=== PATIENT | male | born 1955 | race Caucasian/White ===

== ENCOUNTER 2024-12-25 09:19 | Observation (INO) | payer MEDICARE ==
[2024-12-20 12:28] LABS: BASOPHILS # (AUTO) 0.06 K/uL (0.00-0.20); EOSINOPHILS # (AUTO) 0.15 K/uL (0.00-0.70); EOSINOPHILS % (AUTO) 2.4 % (0.0-8.0); HEMATOCRIT 40.7 % (42-54); IMMATURE GRANULOCYTE ABSOLUTE 0.01 K/uL (0-1); LYMPHOCYTES # (AUTO) 2.1 K/uL (1.0-4.8); LYMPHOCYTES % (AUTO) 33.5 % (21.0-51.0); MEAN CORPUSCULAR HEMOGLOBIN 29.3 pg (27.0-33.0); MEAN CORPUSCULAR HGB CONC 31.7 g/dL (32.0-36.0); MEAN CORPUSCULAR VOLUME 92.3 fL (79-99); MONOCYTES # (AUTO) 0.4 K/uL (0.1-1.0); MONOCYTES % (AUTO) 6.5 % (3.0-13.0); NEUTROPHILS # (AUTO) 3.5 K/uL (1.8-7.7); NEUTROPHILS % (AUTO) 56.4 % (40.0-77.0); PLATELET COUNT (AUTO) 213 K/uL (130-400); RED BLOOD CELL COUNT(AUTO) 4.41 MIL/uL (4.50-6.20); RED CELL DISTRIBUTION WIDTH 13.6 % (11.0-15.5); WHITE BLOOD COUNT (AUTO) 6.2 K/uL (4.8-10.8)
[2024-12-20 12:30] VITALS: BP 145/71; PULSE 57; RESP 18; TEMP 97.8
[2024-12-20 12:38] LABS: INR <= 0.93 (0.85-1.15); PROTHROMBIN TIME 10.3 SEC (9.6-11.6)
[2024-12-20 12:39] LABS: ALBUMIN 3.3 g/dL (3.5-5.0); CREATININE 1.2 mg/dL (0.5-1.3); PARTIAL THROMBOPLASTIN TIME 25.1 SEC (26.3-35.5); POTASSIUM 4.2 mmol/L (3.5-5.1)
[~2024-12-25] VITALS: Ht 172.7 cm; Wt 79.4 kg
[2024-12-25] VITALS (26 sets, daily range): BP systolic 125–166; BP diastolic 59–85; PULSE 57–88; RESP 15–18; TEMP 97.1–98.4; O2SAT 99
[~2024-12-25 09:19] MED LIST: ASPI-1197 PO; CARV12.511 PO; CELE200C3 PO; FERR-82 PO; PANT40TA54 PO; ROSU5TAB51 PO; TRAM50TA4 PO; [UNRECOGNIZED DRUG - CODE] PO
[2024-12-25] MEDS: ceFAZolin SODIUM 2 GM VIAL ONE (10:00)
[2024-12-25] MEDS: LACTATED RINGERS 1000ML 1,000 ML IV ONE (10:01)
[2024-12-25] MEDS: FAMOTIDINE 20MG VIAL IV ONE (10:48)
[2024-12-25] MEDS ORDERED: ROPivacaine 0.5% 5MG/ML 30ML ONE (10:49)
[2024-12-25] MEDS ORDERED: ketaMINE 50MG/ML SYRINGE 50 MG/ML DISP.SYRIN ONE (10:49)
[2024-12-25] MEDS ORDERED: FENTanyl CITRate PF 50 MCG/1 ML 2ML VIAL ONE (10:52)
[2024-12-25] MEDS ORDERED: LIDOCAINE PF 100MG/5ML (2%) SYRINGE 5ML ONE ×2 (10:52→13:05)
[2024-12-25] MEDS ORDERED: rocuRONium bROMide 10MG/1ML 5ML VL ONE ×2 (10:52→12:40)
[2024-12-25] MEDS ORDERED: proPOFol 10 MG/ML 20ML VIAL IV ONE (10:52)
[2024-12-25] MEDS ORDERED: dexaMETHasone SOD PHOSPHATE 10MG/ML 1ML VIAL ONE (12:14)
[2024-12-25] MEDS ORDERED: ondanSETRON 4MG INJ ONE (12:14)
[2024-12-25] MEDS ORDERED: NEOSTIGMINE METHYLSULFATE 1MG/ML IV ONE (12:29)
[2024-12-25] MEDS ORDERED: phenylEPHRINE HCL 10 MG/ML 1ML VIAL IV ONE (12:30)
[2024-12-25] MEDS ORDERED: GLYCOPYRROLATE 0.2 MG/ML 5 ML VIAL ONE (12:30)
[2024-12-25] MEDS: TRANEXAMIC ACID 1000MG/10ML ONE (12:40)
--- NOTE | 2024-12-25 14:44 | OP ---
Operative Note: DATE OF PROCEDURE: 12/25/24 SURGEON: ROSE MARIE MEJIA MD PROPELLER TESTER: Radha Andrews ANESTHESIA: General and fascia iliaca block ANESTHESIOLOGIST/STOCK MIXER: Annamaria Duggan PREOPERATIVE DIAGNOSIS: Right hip osteoarthritis POSTOPERATIVE DIAGNOSIS: Right hip osteoarthritis PROCEDURE: Right total hip arthroplasty ESTIMATED BLOOD LOSS: 200 cc INDICATIONS: 69-year-old male with bilateral hip osteoarthritis failing conservative management. The right hip was more symptomatic. After discussion of the risks, benefits, and alternatives, the patient voluntarily agreed to undergo the aforementioned procedure. IMPLANTS: White and Nephew R3 three-hole shell 54 mm with 6.5 screws x2, dual mobility OR30 Oxinium liner 42 mm inner diameter, dual mobility insert XL PE 28 inner diameter, 28 Oxinium femoral head +4, size 6 standard offset powerology s sid DESCRIPTION OF PROCEDURE: Patient was properly identified in the preoperative holding area. Surgical site marking was verified and surgery consent reviewed. The patient was then taken to the operating room and placed in supine position on the OR table. After induction of general anesthesia, preoperative antibiotics were given. The patient was then transitioned in the lateral decubitus position with the right side up. All bony prominences were well-padded. Right lower extremity was then prepped and draped in the usual sterile fashion. Surgical time out was done verifying correct surgery, side, site, and location to be performed. We then began the procedure by making approximately 15 cm long incision centered over the greater trochanter. Here we came sharply through skin down to the fascia. Hemostasis was then achieved using Bovie electrocautery. We then incised fascia in line with the skin incision and finger split the tensor muscle proximally. We then placed our Charnley retractor. At this point we identified the vastus ridge and began elevating the full-thickness soft tissue flap off of the vastus ridge, splitting the vastus lateralis and gluteus muscles as necessary. We then proceeded to externally rotate the femur while making this flap. We resected part of the anterior capsule. The femoral head and neck was then delivered into view. We then dislocated the hip and performed a femoral neck osteotomy approximately half fingerbreadth proximal to the lesser trochanter. We then placed our retractors around the superior and anterior portion of the acetabulum and began to remove the labrum circumferentially. We then began reaming the acetabulum where we reamed up to a size 53 ensuring appropriate anteversion and abduction. We then proceeded to trial with the size 54 acetabular component and this appeared to sit well. We opened our size 54 acetabular component and after irrigating out the wound malleted this into place. It appeared to have good press-fit however we elected to place two of the 6.5 mm screws. We drilled and filled the screws in standard fashion in the posterior superior portion of the cup. We then placed the manhole cover on the center of the cup. The wound was thoroughly irrigated out further and we placed the acetabular liner and impacted this in place in standard fashion. We then proceeded to reposition our retractors to elevate the proximal femur out of the wound. We then used the box chisel and canal finder to began preparing the femoral side and sequentially broached up to the aforementioned size stem. Once we felt we had good fit, fill, and control of the femur with the stem in place we then used our trial head component and reduce the hip. However, we noticed this to be lax on the soft tissue tensioning with slight shortening of the limb and then dislocated the hip and trialed once more with the +[address] Upon reduction, we had appropriate soft tissue tensioning, limb length and stable range of motion. We therefore dislocated the hip once more removed our trial components thoroughly irrigated the out the wound and placed our final components in standard fashion. The hip was then reduced with the final components in place. It was found to be stable through range of motion with appropriate soft tissue tensioning and appropriate limb length. At this point we placed a bump under the knee and the foot on the male with a stack of towels to allow for internal rotation. We repaired the abductors back to the greater trochanter using #5 Ethibond. We then repaired the rent in the vastus lateralis and gluteus muscles using #1 Vicryl in a running fashion. We removed our Charnley retractor and began to repair the IT band using #1 Vicryl in interrupted [id number] fashion. At this point we began to close her vitale bcutaneous tissue using 2-0 Vicryl. Running 3-0 Monocryl in subcuticular fashion with Dermabond placed over this for the skin. Island barrier dressing was then applied. Patient was returned to supine position with abduction pillow placed, awakened from anesthesia, and taken to the recovery room in stable condition. ROSE MARIE MEJIA MD Dec 25, 2024 14:44
[2024-12-25] MEDS: MEPERIDINE-PF 50 MG/ML SYG ONE (14:59)
[2024-12-25] MEDS: ketOROlac 15MG/ML VIAL (15MG/ML) ONE (15:13)
--- NOTE | 2024-12-25 15:21 | HMCIMG ---
HIP UNILAT 4VW RIGHT REASON: RT total hip arthroplasty. COMPARISON: None TECHNIQUE: Fluoroscopic images of right hip were obtained. FINDINGS: Please see procedure report by referring physician. IMPRESSION: Intraoperative films.
[2024-12-25] MEDS ORDERED: DiphenhydrAMINE HCL 50 MG/ML VIAL IVP PRN (15:30)
[2024-12-25] MEDS ORDERED: FERROUS FUMARATE 324 MG TABLET PO PRN (15:30)
[2024-12-25] MEDS ORDERED: ondanSETRON 4MG INJ IVP PRN (15:30)
[2024-12-25] MEDS ORDERED: ketOROlac 15MG/ML VIAL (15MG/ML) IV SCH (15:30)
[2024-12-25] MEDS ORDERED: CALCIUM CARB 500MG PO PRN (15:30)
[2024-12-25] MEDS ORDERED: PoTASSium chloRIDE 20MEQ/100ML 100 ML IV PRN (15:30)
[2024-12-25] MEDS ORDERED: PoTASSium chl 10% ELIXIR 20MEQ 20 MEQ/15 ML UDCUP PO PRN (15:30)
[2024-12-25] MEDS ORDERED: PoTASSium chloRIDE 20MEQ ER 20 MEQ ERTAB PO PRN (15:30)
--- NOTE | 2024-12-25 15:33 | HMCIMG ---
HIP BILAT 2VW HISTORY: Right total hip arthroplasty COMPARISON: None TECHNIQUE: 3 images of bilateral hips were obtained. FINDINGS: Right total hip arthroplasty changes are seen. Penile prosthesis is also seen. There is no acute displaced fracture or dislocation. Degenerative changes are seen. IMPRESSION: 1. Findings as described above.
[2024-12-25] MEDS: FENTanyl CITRate PF 50 MCG/1 ML 2ML VIAL ONE (15:36)
[2024-12-25] MEDS: HYDROcodone/APAP 5/325 1 TAB TABLET ONE (16:00)
[2024-12-25] MEDS: acetaMINOPHEN 100 ML ONE (19:00)
[2024-12-25] MEDS: 0.9%NACL 1000ML 1,000 ML IV SCH (19:00)
[2024-12-25] MEDS: ceFAZolin SODIUM 2 GM VIAL IVP SCH (21:00)
[2024-12-25] MEDS: ASPIRIN 325MG TAB PO SCH (21:00)
[2024-12-25] MEDS: FERROUS SULFATE 325 MG TABLET.DR PO SCH (21:00)
[2024-12-25] MEDS: atorVAStatin 20 MG TABLET PO SCH (21:00)
[2024-12-25] MEDS: GABApentin 100 MG CAPSULE PO SCH (21:00)
[2024-12-25] MEDS: carVEDIlol 12.5 MG TABLET PO SCH (21:01)
[2024-12-25] MEDS: doCUSate SODIUM 100 MG CAP PO SCH (21:02)
[2024-12-25] MEDS: HYDROcodone/APAP 5/325 1 TAB TABLET PO PRN (21:03)
[2024-12-26] VITALS (8 sets, daily range): BP systolic 115–157; BP diastolic 56–91; PULSE 60–118; RESP 16–20; TEMP 97.8–98.4; O2SAT 100
[2024-12-26 05:31] LABS: HEMATOCRIT 32.9 % (42-54); MEAN CORPUSCULAR HEMOGLOBIN 29.5 pg (27.0-33.0); MEAN CORPUSCULAR HGB CONC 32.8 g/dL (32.0-36.0); MEAN CORPUSCULAR VOLUME 89.9 fL (79-99); RED BLOOD CELL COUNT(AUTO) 3.66 MIL/uL (4.50-6.20); RED CELL DISTRIBUTION WIDTH 13.5 % (11.0-15.5); WHITE BLOOD COUNT (AUTO) 10.9 K/uL (4.8-10.8)
[2024-12-26 05:44] LABS: CREATININE 1.4 mg/dL (0.5-1.3); POTASSIUM 3.7 mmol/L (3.5-5.1)
--- NOTE | 2024-12-26 07:44 | PN ---
Ortho postop day one. This morning the patient is awake alert and oriented. He is seated at the bedside in a chair resting comfortable. He reported a rough night but pain is acceptably managed. Vital signs have been stable he is afebrile. Noted to have a drop in hemoglobin and hematocrit as expected after total hip arthroplasty. Patient is asymptomatic and we will address per protocol as necessary. Voiding on his own. He is yet to pass gas. Performing incentive spirometry as instructed. SCD stockings currently are not present but they are available. He does have ice to the operative site. The dressing is intact. Distal neurovascular exam intact. Gastrocnemius soft. Negative Homans. Operative findings discussed with the patient. He had the opportunity to walk with a PT yesterday but only about 8-10 feet and is pending further physical therapy this morning. Anticipated discharge goal is home health/PT. Assessment: Status post right total hip arthroplasty. Asymptomatic acute postoperative blood loss anemia. Plan: Continue with Dr. Couch's total hip arthroplasty protocol and discharge planning. Asymptomatic acute postoperative blood loss anemia addressed per protocol Vitals/Labs Vital Signs Date Time Temp Pulse Resp B/P (MAP) Pulse Ox O2 Delivery O2 Flow Rate FiO2 12/26/24 04:00 98.4 118 19 123/91 97 Room Air 21 12/25/24 20:00 2 Laboratory Tests 12/26/24 04:54 Medications Current Medications Cefazolin Sodium 2 gm STK-MED ONCE .ROUTE Last administered on 12/25/24at 12:30; Start 12/25/24 at 09:25; Stop 12/25/24 at 09:26; Status DC Lactated Ringer's 1,000 ml @ As Directed STK-MED ONCE IV Last administered on 12/25/24at 10:01; Start 12/25/24 at 09:25; Stop 12/25/24 at 09:26; Status DC Acetaminophen 100 ml @ As Directed STK-MED ONCE .ROUTE; Start 12/25/24 at 10:48; Stop 12/25/24 at 10:48; Status DC Famotidine 20 mg STK-MED ONCE IV; Start 12/25/24 at 10:48; Stop 12/25/24 at 10:48; Status DC Ropivacaine 150 mg STK-MED ONCE .ROUTE; Start 12/25/24 at 10:49; Stop 12/25/24 at 10:50; Status DC Ketamine HCl 50 mg STK-MED ONCE .ROUTE; Start 12/25/24 at 10:49; Stop 12/25/24 at 10:50; Status DC Lidocaine HCl 100 mg STK-MED ONCE .ROUTE; Start 12/25/24 at 10:52; Stop 12/25/24 at 10:52; Status DC Propofol 200 mg STK-MED ONCE IV; Start 12/25/24 at 10:52; Stop 12/25/24 at 10:52; Status DC Rocuronium Erwin 50 mg STK-MED ONCE .ROUTE; Start 12/25/24 at 10:52; Stop 12/25/24 at 10:52; Status DC Fentanyl Citrate 100 mcg STK-MED ONCE .ROUTE; Start 12/25/24 at 10:52; Stop 12/25/24 at 10:53; Status DC Dexamethasone Sodium Phosphate 10 mg STK-MED ONCE .ROUTE; Start 12/25/24 at 12:14; Stop 12/25/24 at 12:15; Status DC Ondansetron HCl 4 mg STK-MED ONCE .ROUTE; Start 12/25/24 at 12:14; Stop 12/25/24 at 12:15; Status DC Tranexamic Acid 1,000 mg STK-MED ONCE .ROUTE Last administered on 12/25/24at 12:40; Start 12/25/24 at 12:18; Stop 12/25/24 at 12:18; Status DC Neostigmine Methylsulfate 10 mg STK-MED ONCE IV; Start 12/25/24 at 12:29; Stop 12/25/24 at 12:29; Status DC Glycopyrrolate 1 mg STK-MED ONCE .ROUTE; Start 12/25/24 at 12:30; Stop 12/25/24 at 12:30; Status DC Phenylephrine HCl 10 mg STK-MED ONCE IV; Start 12/25/24 at 12:30; Stop 12/25/24 at 12:30; Status DC Rocuronium Erwin 50 mg STK-MED ONCE .ROUTE; Start 12/25/24 at 12:40; Stop 12/25/24 at 12:40; Status DC Lidocaine HCl 100 mg STK-MED ONCE .ROUTE; Start 12/25/24 at 13:05; Stop 12/25/24 at 13:05; Status DC Meperidine HCl 50 mg STK-MED ONCE .ROUTE Last administered on 12/25/24at 14:59; Start 12/25/24 at 14:53; Stop 12/25/24 at 14:53; Status DC Sodium Chloride 1,000 ml @ 100 mls/hr Q10H IV; Start 12/25/24 at 15:30; Stop 12/26/24 at 15:29 Polyethylene Glycol 17 gm DAILY PO; Start 12/26/24 at 09:00; Stop 01/25/25 at 08:59 Bisacodyl 10 mg DAILY PRN RC; Start 12/28/24 at 15:30; Stop 01/27/25 at 15:29 Aspirin 325 mg BID PO Last administered on 12/25/24at 21:00; Start 12/25/24 at 21:00; Stop 01/24/25 at 20:59 Ketorolac Tromethamine 15 mg Q6H PRN IV; Start 12/26/24 at 15:30; Stop 12/25/24 at 15:29; Status DC Ferrous Fumarate 324 mg DAILY PRN PO; Start 12/25/24 at 15:30; Stop 01/24/25 at 15:29 Calcium Carbonate 500 mg Q12H PRN PO; Start 12/25/24 at 15:30; Stop 01/24/25 at 15:29 Diphenhydramine HCl 25 mg Q6H PRN IVP; Start 12/25/24 at 15:30; Stop 01/24/25 at 15:29 Ondansetron HCl 4 mg Q6H PRN IVP; Start 12/25/24 at 15:30; Stop 01/24/25 at 15:29 Cefazolin Sodium 2 gm Q8H IVP Last administered on 12/26/24at 05:08; Start 12/25/24 at 20:30; Stop 12/26/24 at 04:31; Status DC Gabapentin 100 mg TID PO Last administered on 12/25/24at 21:00; Start 12/25/24 at 21:00; Stop 01/24/25 at 20:59 Cyclobenzaprine HCl 5 mg Q8H PRN PO; Start 12/25/24 at 15:30; Stop 01/24/25 at 15:29 Docusate Sodium 100 mg BID PO Last administered on 12/25/24at 21:02; Start 12/25/24 at 21:00; Stop 01/24/25 at 20:59 Ketorolac Tromethamine 15 mg Q8H IV; Start 12/25/24 at 15:30; Stop 12/25/24 at 15:29; Status DC Potassium Chloride 100 ml @ 100 mls/hr AD PRN IV; Start 12/25/24 at 15:30; Stop 01/24/25 at 15:29 Potassium Chloride 20 meq AD PRN PO; Start 12/25/24 at 15:30; Stop 01/24/25 at 15:29 Potassium Chloride 20 meq AD PRN PO; Start 12/25/24 at 15:30; Stop 01/24/25 at 15:29 Tramadol HCl 50 mg Q6H PRN PO; Start 12/25/24 at 15:30; Stop 12/30/24 at 15:29 Acetaminophen/ Hydrocodone Bitart Q4H PRN PO Last administered on 12/26/24at 06:21; Start 12/25/24 at 15:30; Stop 12/30/24 at 15:29 Carvedilol 12.5 mg BID PO Last administered on 12/25/24at 21:01; Start 12/25/24 at 21:00; Stop 01/24/25 at 20:59 Pantoprazole Sodium 40 mg AM PO; Start 12/26/24 at 09:00; Stop 01/25/25 at 08:59 Vitamin B Complex 3,000 mcg DAILY PO; Start 12/26/24 at 09:00; Stop 01/25/25 at 08:59 Ferrous Sulfate 325 mg BID PO Last administered on 12/25/24at 21:00; Start 12/25/24 at 21:00; Stop 01/24/25 at 20:59 Atorvastatin Calcium 20 mg HS PO Last administered on 12/25/24at 21:00; Start 12/25/24 at 21:00; Stop 01/24/25 at 20:59 Ketorolac Tromethamine 15 mg STK-MED ONCE .ROUTE Last administered on 12/25/24at 15:13; Start 12/25/24 at 15:11; Stop 12/25/24 at 15:11; Status DC Fentanyl Citrate 100 mcg STK-MED ONCE .ROUTE Last administered on 12/25/24at 15:36; Start 12/25/24 at 15:16; Stop 12/25/24 at 15:17; Status DC Acetaminophen/ Hydrocodone Bitart 1 tab STK-MED ONCE .ROUTE Last administered on 12/25/24at 16:00; Start 12/25/24 at 15:58; Stop 12/25/24 at 15:58; Status DC AMANDA BROWN NP Dec 26, 2024 07:44
[2024-12-26] MEDS: CYANOCOBALAMIN (VITAMIN B-12) 1,000 MCG TABLET PO SCH (09:02)
[2024-12-26] MEDS: polyETHYLene GLYCol 3350 17 GM POWD.PACK PO SCH (09:02)
[2024-12-26] MEDS: PANTOPrazole 40 MG TAB DR PO SCH (09:02)
--- NOTE | 2024-12-26 11:30 | NUR ---
[facility] CM MET WITH PT THIS MORNING, ASSESSMENT DONE. PATIENT IS INDEPENDENT PRIOR TO SURGERY, LIVES AT HOME WITH HIS . [employer]FF [place] FROM [place] AND WILL BE RETURNING SOMETIME MID MARCH. PATIENT STATE THEY'RE CURRENTLY STAYING AT [address] [place] [address]. PATIENT HAS A WALKER, USES [facility] [address] IN [place] FOR MEDS. DENIES ANY OTHER EQUIPMENT/SERVICES. FEELS SAFE TO GO BACK HOME, STILL DRIVE, ABLE TO ASSIST WITH TRANSPORTATION AND NEEDS NECESSARY. DISCUSSED MD RECOMMENDATIONS FOR HOME W/HOME HEALTH, PT AGREEABLE, CONSENT SIGNED LISA FOR [facility]/ANY IN NETWORK HH. [facility] HOME W/HH ONCE APPROVED. CM SENT ORDER, CLINICALS, PT TO [facility] VIA SECURE FAX AND EMAIL, CONFIRMATION RECEIVED. CM SPOKE TO [facility] CONFIRMED RECEIVED PACKET AND CURRENTLY CHECKING PT'S BENEFITS. PT PENDING APPROVAL. PRIMARY NURSE LOTUS MADE AWARE. DR MEJIA UPDATED. CM TO CONTINUE TO FOLLOW UP. Addendum: 12/26/24 at 1329 by TRAE LESLIE LVN CM Amended: Links added.
--- NOTE | 2024-12-26 15:08 | NUR ---
CM NOTE: [facility] APPROVAL CM SPOKE TO ANA Aaron/[facility], PT APPROVED, WILL SEE PATIENT DAY AFTER D/C. PRIMARY NURSE LOTUS MADE AWARE. DR MEJIA UPDATED. CM TO CONTINUE TO FOLLOW UP.
--- NOTE | 2024-12-26 15:15 | NUR ---
ORTHO COORDINATOR: TEACHING REGARDING DVT AND PNEUMONIA PREVENTION. PAIN EXPECTATIONS, PAIN MANAGEMENT. PATIENT IN BED. B SCD SLEEVES IN PLACE AND FUNCTIONING. INCENTIVE SPIROMETER ON BEDSIDE TRAY. PATIENT REPORTS PERFORMING INCENTIVE SPIROMETER 2 TIMES PER DAY. RE-EDUCATED. PATIENT TO PERFORM EVERY 2 HOURS, 10 TIMES. RATIONALE PROVIDED. PATIENT VERBALIZED UNDERSTANDING. PATIENT RETURN DEMONSTRATED PROPER FOOT FLEXION AND EXTENSION EXERCISE. PAIN SCALE REVIEWED. PATIENT INSTRUCTED TO PROVIDE NUMERIC PAIN RATING ALONG WITH TYPE. REMINDED PATIENT PAIN MEDICATION MUST BE REQUESTED. INFORMED PATIENT MEDICATIONS WERE AVAILABLE ACROSS THE PAIN RANGE AND TO REQUEST WITH LOWER PAIN RATINGS. PATIENT VERBALIZED UNDERSTANDING. PATIENT REPORTS MUSCLE SPASMS, WILL REQUEST MEDICATION FROM PRIMARY NURSE. PATIENT INTENDS TO RETURN HOME WITH HOME HEALTH. ENCOURAGED PATIENT TO CONTINUE PREMEDICATING PRIOR TO PHYSICAL THERAPY AT HOME AND PERIODS OF HIGH ACTIVITY. PATIENT VERBALIZED UNDERSTANDING. NO ADDITIONAL QUESTIONS OR CONCERNS. PATIENT REPORTS HAVING WALKER AND HANDICAPPED TOILET AT HOME. 1320 REPORT TO PRIMARY NURSE REGARDING MUSCLE SPASMS. PATIENT HAS NOT YET SHOWERED. PRIMARY NURSE ACKNOWLEDGE COMMUNICATION.
[2024-12-26] MEDS: traMADol HCL 50 MG TABLET PO PRN (15:26)
[2024-12-26] MEDS: CYCLOBENZAPRINE HCL 10 MG TABLET PO PRN (15:26)
[2024-12-26] MEDS ORDERED: ketOROlac 15MG/ML VIAL (15MG/ML) IV PRN (15:30)
[2024-12-27] VITALS: BP 140/71; PULSE 82; RESP 19; TEMP 98.5
[2024-12-27 04:00] VITALS: BP 121/76; PULSE 90; RESP 19; TEMP 98
[2024-12-27 08:00] VITALS: BP 145/85; PULSE 100; RESP 19; TEMP 97.9; O2SAT 95
[2024-12-27 12:00] VITALS: BP 106/66; PULSE 98; RESP 15; TEMP 98
--- NOTE | 2024-12-27 14:27 | DS ---
Discharge Summary Hospital Course Summary: The patient was admitted to the hospital postoperatively on 12/25/2024 after undergoing right total hip arthroplasty. They did well with routine postoperative pain control. They worked well with physical therapy. They developed some acute blood loss anemia but remained asymptomatic. The hospital course was otherwise uncomplicated. They were subsequently able to be discharged on postoperative day two once discharge arrangements were made with home health physical therapy. [place] Trimmer(s): None Procedure(s): Right total hip arthroplasty, 12/25/2024 Assessment/Plan: ASSESSMENT: Postop day two status post right total hip arthroplasty doing well Acute blood loss anemia, asymptomatic PLAN: See discharge instructions Discharge Instructions: Begin working with home health physical therapy. Remembered do not flex the hip more than 90 and do not cross midline at the knees or ankles for the 1st six weeks. If you are side sleeper place a pillow between the knees and ankles to prevent the legs from crossing. Dressing may be removed 12/27/2024 and left open to air. Showers ok allowing soap and water to run over the wound. Pat dry. Do not submerge wound in tub/pool. Do not apply ointments. Do not apply Betadine. Do not apply peroxide. Ice packs to decrease pain/swelling. Prescriptions have been sent to the pharmacy: *[place] 5/325mg 1-2 tab every 6 hours as needed for severe pain. (please call for refills) Cyclobenzaprine 5mg 1 tab every 8 hours as needed for muscle spasm pain. Gabapentin 100mg 1 tab every 8 hours (may discontinue if drowsy). Colace 100mg 1 tab orally twice a day as needed for constipation. Aspirin 325mg twice a day for 30 days to prevent blood clots. Call for a follow-up appointment in 2-3 weeks at [facility]. Home Medications: Active Scripts Docusate Sodium (Colace) 100 Mg Capsule, 1 CAP PO BID for 30 Days, #60 CAP 0 Refills Prov:ROSE MARIE MEJIA MD 12/27/24 Hydrocodone/Acetaminophen (Hydrocodon-Acetaminophen 5-325) 5 Mg-325 Mg Tablet, 1-2 TAB PO Q4H PRN for MODERATE/SEVERE PAIN LEVEL, #56 TAB 0 Refills Prov:ROSE MARIE MEJIA MD 12/27/24 Gabapentin (Neurontin) 100 Mg Capsule, 100 MG PO TID, #90 CAP 0 Refills Prov:ROSE MARIE MEJIA MD 12/27/24 Cyclobenzaprine HCl (Cyclobenzaprine HCl) 10 Mg Tablet, 5 MG PO Q8H PRN for MUSCLE SPASMS, #90 TAB 0 Refills Prov:ROSE MARIE MEJIA MD 12/27/24 Aspirin (Aspirin) 325 Mg Tablet, 325 MG PO BID, #60 TAB 0 Refills Prov:ROSE MARIE MEJIA MD 12/27/24 Reported Medications Ferrous Sulfate (Iron) 325 Mg (65 Mg Iron) Tablet, 325 MG PO BID, TAB 12/20/24 Cyanocobalamin (Vitamin B-12) (Vitamin B-12) 3,000 Mcg Capsule, 3000 MCG PO AM, CAP 12/20/24 Rosuvastatin Calcium (Rosuvastatin Calcium) 5 Mg Tablet, 5 MG PO AM, TAB 12/20/24 Carvedilol (Carvedilol) 12.5 Mg Tablet, 12.5 MG PO BID, TAB 12/20/24 Pantoprazole Sodium (Pantoprazole Sodium) 40 Mg Tablet.dr, 40 MG PO AM, TAB 12/20/24 Celecoxib (Celebrex) 200 Mg Capsule, 200 MG PO PM, CAP 12/20/24 Discontinued Reported Medications Tramadol Hcl (Tramadol HCl) 50 Mg Tablet, 50 MG PO DAILY, TAB 12/20/24 Aspirin (Aspirin) 81 Mg Tab.chew, 81 MG PO PM, TAB.CHEW 12/20/24 ROSE MARIE MEJIA MD Dec 27, 2024 14:27
--- NOTE | 2024-12-27 16:35 | NUR ---
PATIENT D/C HOME . NO S/S OF DISTRESS NOTED. SURGICAL DRESSING REMOVED PER ORDER. MEDICATIONS AND APPOINTMENT DATE AND TIME REVIEWED WITH PATIENT. .PATIENT VERBALIZED UNDERSTANDING.
[2024-12-27] MEDS ORDERED: HYDR-4060 PO (17:24)
[2024-12-27] MEDS ORDERED: DOCU-116 PO (17:24)
[2024-12-27] MEDS ORDERED: CYCL-309 PO (17:24)
[2024-12-27] MEDS ORDERED: ASPI-1026 PO (17:24)
[2024-12-27] MEDS ORDERED: GABA100C PO (17:24)
[2024-12-28] MEDS ORDERED: BisaCODYL 10 MG SUPP.RECT RC PRN (15:30)
== END 2024-12-27 17:00 | disposition home or self-care (01) ==
LOC: DAH 09:19 → DAHIP 09:20 → 4BH 17:10
PROVIDERS: ADMIT Student in an Organized Health Care Education/Training Program; ATTEND Student in an Organized Health Care Education/Training Program
DX: M16.11 Unilateral primary osteoarthritis, right hip (principal); G89.18 Other acute postprocedural pain; M75.22 Bicipital tendinitis, left shoulder; D62 Acute posthemorrhagic anemia; K21.9 Gastro-esophageal reflux disease without esophagitis; E78.5 Hyperlipidemia, unspecified; I42.9 Cardiomyopathy, unspecified; Z90.49 Acquired absence of other specified parts of digestive tract; Z98.84 Bariatric surgery status; Z79.899 Other long term (current) drug therapy
CPT/HCPCS: 82040; 80048 ×2; 85025; 85610; 85730; 84134; 86140; 36415 ×2; 87641; 64447; 73503; 96374; 27130; 73521; 97161; 97116 ×5; 97530 ×7; 96376; 85027; G0378 ×47; A4663; J7120; J3490 ×6; J3010 ×2; J1100; J2003 ×2; J2704; J2405; J2710; J2175; J2795; J1885; J2371; J0690 ×3; A4649 ×2; A4930 ×2; A6255; A5120; A4215; A4223; A4222; A4221; C1776

== ENCOUNTER 2025-03-07 05:52 | Observation (INO) | payer MEDICARE ==
[2025-03-01 11:11] LABS: BASOPHILS # (AUTO) 0.07 K/uL (0.00-0.20); BASOPHILS % (AUTO) 1.2 % (0.0-5.0); EOSINOPHILS # (AUTO) 0.18 K/uL (0.00-0.70); HEMATOCRIT 39.1 % (42-54); IMMATURE GRANULOCYTE ABSOLUTE 0.02 K/uL (0-1); LYMPHOCYTES # (AUTO) 1.6 K/uL (1.0-4.8); LYMPHOCYTES % (AUTO) 26.6 % (21.0-51.0); MEAN CORPUSCULAR HEMOGLOBIN 30.2 pg (27.0-33.0); MEAN CORPUSCULAR HGB CONC 32.7 g/dL (32.0-36.0); MEAN CORPUSCULAR VOLUME 92.2 fL (79-99); MONOCYTES # (AUTO) 0.4 K/uL (0.1-1.0); MONOCYTES % (AUTO) 5.8 % (3.0-13.0); NEUTROPHILS # (AUTO) 3.8 K/uL (1.8-7.7); NEUTROPHILS % (AUTO) 63.1 % (40.0-77.0); PLATELET COUNT (AUTO) 231 K/uL (130-400); RED BLOOD CELL COUNT(AUTO) 4.24 MIL/uL (4.50-6.20); RED CELL DISTRIBUTION WIDTH 13.1 % (11.0-15.5)
[2025-03-01 11:22] LABS: ALBUMIN 3.2 g/dL (3.5-5.0); CREATININE 1.4 mg/dL (0.5-1.3); POTASSIUM 4.3 mmol/L (3.5-5.1)
[2025-03-01 11:25] VITALS: BP 123/68; PULSE 70; RESP 14; TEMP 98.7
[2025-03-01 11:34] LABS: INR 0.99 (0.85-1.15); PROTHROMBIN TIME 10.5 SEC (9.6-11.6)
--- NOTE | 2025-03-01 11:34 | EKG ---
[facility] Test Date: 2025-03-01 Test Time: 10:56:25 Pat Name: VICTORIA JUAREZ Department: [facility] Room: Gender: Stogy Roller: [id number] Requested By: ROSE MARIE MEJIA Order Number: [id number] Reading MD: Florencia Snow Measurements Intervals Irma Rate: 64 P: 55 AR: 167 QRS: 29 QRSD: 104 T: 25 QT: 416 QTc: 429 Interpretive Statements Sinus rhythm No previous ECG available for comparison Electronically Signed On 03-02-2025 09:33:42 CDT by Florencia Snow Please click the below link to view image of tracing.
[2025-03-01 11:35] LABS: PARTIAL THROMBOPLASTIN TIME 25.3 SEC (26.3-35.5)
--- NOTE | 2025-03-01 11:35 | NUR ---
ABDULAZIZ ANDRADE RT INSTRUCTED PT ON INCENTIVE SPIROMETRY. PT REACHED 4000 WITHOUT ANY PROBLEMS. PT RECENTLY HAD TOTAL HIP DONE TO OPPOSITE SIDE
[2025-03-07] VITALS (29 sets, daily range): BP systolic 122–172; BP diastolic 59–89; PULSE 60–94; RESP 15–18; TEMP 97.2–99.5; O2SAT 95–96
[~2025-03-07] VITALS: Ht 172.7 cm; Wt 77.1 kg
[~2025-03-07 05:52] MED LIST changes: -ASPI-1197 PO; +ASPI-1443 PO; -TRAM50TA4 PO; +tramadol PO
[2025-03-07] MEDS: ceFAZolin SODIUM 2 GM VIAL ONE (06:38)
[2025-03-07] MEDS ORDERED: MIDAZOLAM HCL 1 MG/ML 2ML VIAL ONE (06:57)
[2025-03-07] MEDS ORDERED: FENTanyl CITRate PF 50 MCG/1 ML 2ML VIAL ONE ×2 (06:57→11:02)
[2025-03-07] MEDS ORDERED: ondanSETRON 4MG INJ ONE (07:10)
[2025-03-07] MEDS ORDERED: rocuRONium bROMide 10MG/1ML 5ML VL ONE ×2 (07:11→09:28)
[2025-03-07] MEDS ORDERED: proPOFol 10 MG/ML 20ML VIAL IV ONE ×2 (07:11→11:04)
[2025-03-07] MEDS ORDERED: ketaMINE 50MG/ML SYRINGE 50 MG/ML DISP.SYRIN ONE (07:13)
[2025-03-07] MEDS: acetaMINOPHEN 325 MG TAB ONE (07:29)
[2025-03-07] MEDS: LACTATED RINGERS 1000ML 1,000 ML IV ONE (07:43)
--- NOTE | 2025-03-07 07:44 | DS ---
Discharge Summary Hospital Course Summary: The patient was admitted to the hospital postoperatively on 03/07/2025 after undergoing a left total hip arthroplasty. They did well with routine postoperative pain control. They worked well with physical therapy. They developed some acute blood loss anemia but remained asymptomatic. The hospital course was otherwise uncomplicated. They were subsequently able to be discharged on postoperative day [] once discharge arrangements were made with home health physical therapy. Assessment/Plan: ASSESSMENT: [ ] PLAN: [ ] Discharge Instructions: Begin working with home health physical therapy. Remembered do not flex the hip more than 90 and do not cross midline at the knees or ankles for the 1st six weeks. If you are side sleeper place a pillow between the knees and ankles to prevent the legs from crossing. Dressing may be removed 03/09/2025 and left open to air. Showers ok allowing soap and water to run over the wound. Pat dry. Do not submerge wound in tub/po ol. Do not apply ointments. Do not apply Betadine. Do not apply peroxide. Ice packs to decrease pain/swelling. Prescriptions have been sent to the pharmacy: *[place] 5/325mg 1-2 tab every 6 hours as needed for severe pain. (please call for refills) Cyclobenzaprine 5mg 1 tab every 8 hours as needed for muscle spasm pain. Gabapentin 100mg 1 tab every 8 hours (may discontinue if drowsy). Colace 100mg 1 tab orally twice a day as needed for constipation. Aspirin 325mg for 30 days to prevent blood clots. Call for a follow-up appointment in 2-3 weeks at [facility]. Home Medications: Reported Medications [tramadol] No Conflict Check, 50 MG PO DAILY PRN for PAIN 03/01/25 Aspirin (Aspirin EC) 81 Mg Tablet.dr, 81 MG PO HS, TAB 03/01/25 Ferrous Sulfate (Iron) 325 Mg (65 Mg Iron) Tablet, 325 MG PO BID, TAB 12/20/24 Cyanocobalamin (Vitamin B-12) (Vitamin B-12) 3,000 Mcg Capsule, 3000 MCG PO AM, CAP 12/20/24 Rosuvastatin Calcium (Rosuvastatin Calcium) 5 Mg Tablet, 5 MG PO HS, TAB 12/20/24 Carvedilol (Carvedilol) 12.5 Mg Tablet, 12.5 MG PO BID, TAB 12/20/24 Pantoprazole Sodium (Pantoprazole Sodium) 40 Mg Tablet.dr, 40 MG PO AM, TAB 12/20/24 Celecoxib (Celebrex) 200 Mg Capsule, 200 MG PO BID, CAP 12/20/24 Discontinued Scripts Docusate Sodium (Colace) 100 Mg Capsule, 1 CAP PO BID for 30 Days, #60 CAP 0 Refills Prov:ROSE MARIE MEJIA MD 12/27/24 Hydrocodone/Acetaminophen (Hydrocodon-Acetaminophen 5-325) 5 Mg-325 Mg Tablet, 1-2 TAB PO Q4H PRN for MODERATE/SEVERE PAIN LEVEL, #56 TAB 0 Refills Prov:ROSE MARIE MEJIA MD 12/27/24 Gabapentin (Neurontin) 100 Mg Capsule, 100 MG PO TID, #90 CAP 0 Refills Prov:ROSE MARIE MEJIA MD 12/27/24 Cyclobenzaprine HCl (Cyclobenzaprine HCl) 10 Mg Tablet, 5 MG PO Q8H PRN for MUSCLE SPASMS, #90 TAB 0 Refills Prov:ROSE MARIE MEJIA MD 12/27/24 Aspirin (Aspirin) 325 Mg Tablet, 325 MG PO BID, #60 TAB 0 Refills Prov:ROSE MARIE MEJIA MD 12/27/24 ROSE MARIE MEJIA MD Mar 07, 2025 07:44
[2025-03-07] MEDS: TRANEXAMIC ACID 1000MG/10ML ONE (07:55)
[2025-03-07] MEDS ORDERED: HYDROcodone/APAP 5/325 1 TAB TABLET PO PRN (08:00)
[2025-03-07] MEDS ORDERED: FERROUS FUMARATE 324 MG TABLET PO PRN (08:00)
[2025-03-07] MEDS ORDERED: CALCIUM CARB 500MG PO PRN (08:00)
[2025-03-07] MEDS ORDERED: PoTASSium chloRIDE 20MEQ/100ML 100 ML IV PRN (08:00)
[2025-03-07] MEDS ORDERED: ondanSETRON 4MG INJ IVP PRN (08:00)
[2025-03-07] MEDS: ketOROlac 15MG/ML VIAL (15MG/ML) IV SCH (08:00)
[2025-03-07] MEDS ORDERED: DiphenhydrAMINE HCL 50 MG/ML VIAL IVP PRN (08:00)
[2025-03-07] MEDS ORDERED: PoTASSium chloRIDE 20MEQ ER 20 MEQ ERTAB PO PRN (08:00)
[2025-03-07] MEDS ORDERED: PoTASSium chl 10% ELIXIR 20MEQ 20 MEQ/15 ML UDCUP PO PRN (08:00)
[2025-03-07] MEDS: ceFAZolin SODIUM 2 GM VIAL IVPB ONE (08:50)
[2025-03-07] MEDS ORDERED: phenylEPHRINE HCL 10 MG/ML 1ML VIAL IV ONE (08:59)
[2025-03-07] MEDS: PANTOPrazole 40 MG TAB DR PO SCH (09:00)
[2025-03-07] MEDS: CYANOCOBALAMIN (VITAMIN B-12) 1,000 MCG TABLET PO SCH (09:00)
[2025-03-07] MEDS: doCUSate SODIUM 100 MG CAP PO SCH (09:00)
[2025-03-07] MEDS: polyETHYLene GLYCol 3350 17 GM POWD.PACK PO SCH (09:00)
[2025-03-07] MEDS: FERROUS SULFATE 325 MG TABLET.DR PO SCH (09:00)
[2025-03-07] MEDS: carVEDIlol 12.5 MG TABLET PO SCH (09:00)
--- NOTE | 2025-03-07 10:46 | HMCIMG ---
Fluoroscopic guidance History: ORIF LEFT NATALIA, SX Fluoroscopic guidance provided. Procedure by ordering physician in operating room suite with fluoroscopic guidance. Several spot images were obtained. Impression: Fluoroscopic guidance.
[2025-03-07] MEDS ORDERED: NEOSTIGMINE METHYLSULFATE 1MG/ML IV ONE (10:52)
[2025-03-07] MEDS ORDERED: GLYCOPYRROLATE 0.2 MG/ML 5 ML VIAL ONE (10:52)
[2025-03-07] MEDS: TRANEXAMIC ACID 1000MG/10ML IV ONE (10:52)
--- NOTE | 2025-03-07 11:16 | OP ---
Operative Note: DATE OF PROCEDURE: 03/07/25 SURGEON: ROSE MARIE MEJIA MD MANAGER ACTIVITIES: Radha Andrews and Madalyn Lynne ANESTHESIA: General and fascia iliaca block ANESTHESIOLOGIST/ROLL PLUGGER: Lit Jamil PREOPERATIVE DIAGNOSIS: Left hip osteoarthritis POSTOPERATIVE DIAGNOSIS: Left hip osteoarthritis PROCEDURE: Left total hip arthroplasty ESTIMATED BLOOD LOSS: 250 cc INDICATIONS: 69-year-old male with left hip osteoarthritis failing conservative management. After discussion of the risks, benefits, and alternatives, the patient voluntarily agreed to undergo the aforementioned procedure. IMPLANTS: White and Nephew 54 mm R3 acetabular component with 6.5 mm screws x2, 0 degree OR30 Oxinium liner, size six standard offset anthology stem with a 28 mm Oxinium +0 head and OR30 28/42mm dual mobility XLPE insert DESCRIPTION OF PROCEDURE: Patient was properly identified in the preoperative holding area. Surgical site marking was verified and surgery consent reviewed. The patient was then taken to the operating room and placed in supine position on the OR table. After induction of general anesthesia, preoperative antibiotics were given. The patient was then transitioned in the lateral decubitus position with the left side up. All bony prominences were well-padded. Left lower extremity was then prepped and draped in the usual sterile fashion. Surgical time out was done verifying correct surgery, side, site, and location to be performed. We then began the procedure by making approximately 15 cm long incision centered over the greater trochanter. Here we came sharply through skin down to the fascia. Hemostasis was then achieved using Bovie electrocautery. We then incised fascia in line with the skin incision and finger split the tensor muscle proximally. We then placed our Charnley retractor. At this point we identified the vastus ridge and began elevating the full-thickness soft tissue flap off of the vastus ridge, splitting the vastus lateralis and gluteus muscles as necessar y. We then proceeded to externally rotate the femur while making this flap. We resected part of the anterior capsule. The femoral head and neck was then delivered into view. We then dislocated the hip and performed a femoral neck osteotomy approximately half fingerbreadth proximal to the lesser trochanter. We then placed our retractors around the superior and anterior portion of the acetabulum and began to remove the labrum circumferentially. We then began reaming the acetabulum where we reamed up to a size 53 ensuring appropriate anteversion and abduction. We then proceeded to trial with the size 53 acetabular component and this appeared to sit well. We opened our size 54 acetabular component and after irrigating out the wound malleted this into zohra ce. It appeared to have good press-fit however we elected to place two of the 6.5 mm screws as well. We drilled and filled the screws in standard fashion in the posterior superior portion of the cup. The wound was thoroughly irrigated out further and we placed the Oxinium acetabular liner and impacted this in place in standard fashion. We then proceeded to reposition our retractors to elevate the proximal femur out of the wound. We then used the box chisel and canal finder to began preparing the femoral side and sequentially broached up to the aforementioned size stem. Once we felt we had good fit, fill, and control of the femur with the stem in place we then used our trial dual mobility head component and reduce the hip. Upon reduction, we had appropriate soft tissue tensioning, limb length and stable range of motion. We therefore dislocated the hip once more removed our t rial components thoroughly irrigated the out the wound and placed our final components in standard fashion. The hip was then reduced with the final components in place. It was found to be stable through range of motion with appropriate soft tissue tensioning and appropriate limb length. At this point we placed a bump under the knee and the foot on the male with a stack of towels to allow for internal rotation. We repaired the abductors back to the greater trochanter using #5 Ethibond. We then repaired the rent in the vastus lateralis and gluteus muscles using #1 Vicryl in a running fashion. We removed our Charnley retractor and began to repair the IT band using #1 Vicryl in interrupted [id number]-lakli fashion. At this point we began to close her sub cutaneous tissue using 2-0 Vicryl. Running 3-0 Monocryl in subcuticular fashion with Dermabond placed over this for the skin. Island barrier dressing was then applied. Patient was returned to supine position with abduction pillow placed, awakened from anesthesia, and taken to the recovery room in stable condition. ROSE MARIE MEJIA MD Mar 07, 2025 11:16
[2025-03-07] MEDS: hydroMORPHone 1 MG INJ ONE (11:24)
[2025-03-07] MEDS: GABApentin 100 MG CAPSULE ONE (11:40)
[2025-03-07] MEDS: GABApentin 100 MG CAPSULE PO SCH ×2 (11:40→19:42)
[2025-03-07] MEDS: FENTanyl CITRate PF 50 MCG/1 ML 2ML VIAL ONE (11:44)
[2025-03-07] MEDS: HYDROcodone/APAP 5/325 1 TAB TABLET ONE (11:49)
[2025-03-07] MEDS: HYDROcodone/APAP 5/325 1 TAB TABLET PO PRN ×2 (11:51→16:31)
[2025-03-07] MEDS: methoCARBamol 500 MG TABLET PO ONE (11:59)
[2025-03-07] MEDS ORDERED: ceFAZolin SODIUM 2 GM VIAL IVP SCH (13:00)
[2025-03-07] MEDS: 0.9%NACL 1000ML 1,000 ML IV SCH (13:26)
--- NOTE | 2025-03-07 13:37 | HMCIMG ---
Exam Type: HIP BILAT 2VW Clinical Information: S/P HIP SURGERY; COMPARING RT vs LT Comparison: None Findings: Status post bilateral hip replacement. No fractures or dislocations are seen. No radiopaque foreign bodies are noted. Incidentally, penile implant in place . IMPRESSION: No acute pathology.
--- NOTE | 2025-03-07 14:45 | NUR ---
ORTHO COORDINATOR: TEACHING REGARDING DVT AND PNEUMONIA PREVENTION, PAIN MANAGEMENT AND PAIN EXPECTATIONS. PATIENT IN BED. SPOUSE AT BEDSIDE. B SCD SLEEVES IN PLACE AND FUNCTIONING. PATIENT VERBALIZED CORRECT FREQUENCY OF INCENTIVE SPIROMETRY USE. PATIENT RETURN DEMONSTRATED PROPER USE OF INCENTIVE SPIROMETER AND FOOT FLEXION/EXTENSION EXERCISES. PATIENT PAIN CURRENTLY CONTROLLED. INSTRUCTED PATIENT PAIN MEDICATION AVAILABLE UPON REQUEST. INSTRUCTED PATIENT TO SET AN ALARM FOR EVERY FOUR HOURS AND ASSIGN PAIN LEVEL AND TYPE OF PAIN AND CALL FOR MEDICATION. PATIENT AND VERBALIZED UNDERSTANDING. PATIENT INTENDS TO RETURN HOME WITH HOME HEALTH PHYSICAL THERAPY WITH [facility], WHO PROVIDED CARE AFTER HIS HIP REPLACEMENT IN DECEMBER OF THIS YEAR. NO ADDITIONAL QUESTIONS/CONCERNS AT THIS TIME. Addendum: 03/07/25 at 1722 by KAMERON POSADA RN RN PATIENT UTILIZING ICE PACK TO SURGICAL SITE.
--- NOTE | 2025-03-07 16:33 | NUR ---
[facility] CM spoke to pt's Edith Gonsalez initial assessment done. Patient is independent prior to surgery, lives at home with , avril burleson from [place]. Patient has a walker, seat in the shower. [facility] [address] [address] [place] [address]. Feels safe to go back home, still drive, able to assist with transportation and needs as necessary. Discussed MD recommendations for home w/HH, agreeable, would like to use same HH last time w/[facility] and Charlie was the PT, telephone consent obtained LISA for [facility] witnessed by Arleth MONDRAGON. [facility] w/HH once approved. CM sent order, clinicals to [facility] via secure fax and email, rep made aware of pt's request above. Pt pending PT eval at this time, will send notes once available. Pt pending approval for HH. CM to continue to follow up. Addendum: 03/07/25 at 1636 by TRAE LESLIE LVN Amended: Links added.
--- NOTE | 2025-03-07 16:48 | NUR ---
CM Note: [facility] HH approval CM received approval confirmation from Roma chase/[facility] tomorrow. Ortho Team made aware. CM to continue to follow up.
[2025-03-07] MEDS: ceFAZolin SODIUM 2 GM VIAL IVP SCH (16:56)
[2025-03-07] MEDS: traMADol HCL 50 MG TABLET PO PRN (19:42)
[2025-03-07] MEDS: atorVAStatin 10 MG TABLET PO SCH (19:42)
[2025-03-07] MEDS: CYCLOBENZAPRINE HCL 10 MG TABLET PO PRN (19:43)
[2025-03-08] VITALS (8 sets, daily range): BP systolic 95–149; BP diastolic 52–81; PULSE 60–91; RESP 18–20; TEMP 98–98.9; O2SAT 93–96
[2025-03-08 05:49] LABS: HEMATOCRIT 30.7 % (42-54); MEAN CORPUSCULAR HEMOGLOBIN 29.7 pg (27.0-33.0); MEAN CORPUSCULAR HGB CONC 32.9 g/dL (32.0-36.0); MEAN CORPUSCULAR VOLUME 90.3 fL (79-99); RED BLOOD CELL COUNT(AUTO) 3.4 MIL/uL (4.50-6.20); RED CELL DISTRIBUTION WIDTH 13.1 % (11.0-15.5); WHITE BLOOD COUNT (AUTO) 8.8 K/uL (4.8-10.8)
[2025-03-08] MEDS: ketOROlac 15MG/ML VIAL (15MG/ML) ONE (05:51)
[2025-03-08] MEDS: ketOROlac 15MG/ML VIAL (15MG/ML) IV PRN (05:51)
[2025-03-08 06:00] LABS: CREATININE 1.3 mg/dL (0.5-1.3); POTASSIUM 3.7 mmol/L (3.5-5.1)
--- NOTE | 2025-03-08 07:41 | PN ---
Ortho postop day one. This morning patient is awake alert and oriented. Reporting adequate pain control. Already out of bed seated the bedside in chair resting comfortably. Vital signs have been stable. Afebrile. Laboratory results reviewed noted to have a drop in hemoglobin and hematocrit as expected after total hip arthroplasty. Patient is asymptomatic and we will continue to observe and address per protocol as necessary. Voiding on his own. Performing incentive spirometry with adequate returned demonstration. Ice present to operative site. Dressing is intact. Distal neurovascular exam intact. Negative Homans. Ambulated yesterday with PT about 10 ft. Pending physical therapy this morning. Anticipated discharge goal is [facility]/home health/PT. Assessment: Status post left total hip arthroplasty. Asymptomatic acute postoperative blood loss anemia. Plan: Continue with Dr. Couch's total hip arthroplasty protocol and discharge planning. Asymptomatic acute postoperative blood loss anemia addressed with the protocol as necessary Vitals/Labs Vital Signs Date Time Temp Pulse Resp B/P (MAP) Pulse Ox O2 Delivery O2 Flow Rate FiO2 03/08/25 06:47 73 18 N/A Room Air 21 03/08/25 04:00 98.8 104/52 95 03/07/25 20:00 0 Laboratory Tests 03/08/25 05:32 Medications Current Medications Cefazolin Sodium 2 gm STK-MED ONCE .ROUTE; Start 03/07/25 at 06:38; Stop 03/07/25 at 06:38; Status DC Lactated Ringer's 1,000 ml @ As Directed STK-MED ONCE IV Last administered on 03/07/25at 07:43; Start 03/07/25 at 06:38; Stop 03/07/25 at 06:38; Status DC Midazolam HCl 2 mg STK-MED ONCE .ROUTE; Start 03/07/25 at 06:57; Stop 03/07/25 at 06:57; Status DC Fentanyl Citrate 100 mcg STK-MED ONCE .ROUTE; Start 03/07/25 at 06:57; Stop 03/07/25 at 06:57; Status DC Ondansetron HCl 4 mg STK-MED ONCE .ROUTE; Start 03/07/25 at 07:10; Stop 03/07/25 at 07:11; Status DC Propofol 200 mg STK-MED ONCE IV; Start 03/07/25 at 07:11; Stop 03/07/25 at 07:11; Status DC Rocuronium [place] 50 mg STK-MED ONCE .ROUTE; Start 03/07/25 at 07:11; Stop 03/07/25 at 07:12; Status DC Ketamine HCl 50 mg STK-MED ONCE .ROUTE; Start 03/07/25 at 07:13; Stop 03/07/25 at 07:13; Status DC Acetaminophen 325 mg STK-MED ONCE .ROUTE; Start 03/07/25 at 07:29; Stop 03/07/25 at 07:29; Status DC Sodium Chloride 1,000 ml @ 100 mls/hr Q10H IV Last administered on 03/07/25at 13:26; Start 03/07/25 at 08:00; Stop 03/08/25 at 07:59 Polyethylene Glycol 17 gm DAILY PO; Start 03/07/25 at 09:00; Stop 04/06/25 at 08:59 Bisacodyl 10 mg DAILY PRN RC; Start 03/10/25 at 08:00; Stop 04/09/25 at 07:59 Ketorolac Tromethamine 15 mg Q6H PRN IV Last administered on 03/08/25at 05:51; Start 03/08/25 at 08:00; Stop 03/12/25 at 07:59 Ferrous Fumarate 324 mg DAILY PRN PO; Start 03/07/25 at 08:00; Stop 04/06/25 at 07:59 Calcium Carbonate 500 mg Q12H PRN PO; Start 03/07/25 at 08:00; Stop 04/06/25 at 07:59 Diphenhydramine HCl 25 mg Q6H PRN IVP; Start 03/07/25 at 08:00; Stop 04/06/25 at 07:59 Ondansetron HCl 4 mg Q6H PRN IVP; Start 03/07/25 at 08:00; Stop 04/06/25 at 07:59 Cefazolin Sodium 2 gm Q8H IVP; Start 03/07/25 at 13:00; Stop 03/07/25 at 16:26; Status DC Gabapentin 100 mg TID PO Last administered on 03/07/25at 11:40; Start 03/07/25 at 09:00; Stop 03/07/25 at 16:27; Status DC Cyclobenzaprine HCl 5 mg Q8H PRN PO Last administered on 03/07/25at 19:43; Start 03/07/25 at 08:00; Stop 04/06/25 at 07:59 Docusate Sodium 100 mg BID PO Last administered on 03/07/25at 19:42; Start 03/07/25 at 09:00; Stop 04/06/25 at 08:59 Ketorolac Tromethamine 15 mg Q8H IV Last administered on 03/07/25at 23:08; Start 03/07/25 at 08:00; Stop 03/08/25 at 00:01; Status DC Aspirin 325 mg DAILY PO; Start 03/08/25 at 09:00; Stop 04/07/25 at 08:59 Potassium Chloride 100 ml @ 100 mls/hr AD PRN IV; Start 03/07/25 at 08:00; Stop 04/06/25 at 07:59 Potassium Chloride 20 meq AD PRN PO; Start 03/07/25 at 08:00; Stop 04/06/25 at 07:59 Potassium Chloride 20 meq AD PRN PO; Start 03/07/25 at 08:00; Stop 04/06/25 at 07:59 Tramadol HCl 50 mg Q6H PRN PO Last administered on 03/07/25at 19:42; Start 03/07/25 at 08:00; Stop 03/12/25 at 07:59 Acetaminophen/ Hydrocodone Bitart Q4H PRN PO; Start 03/07/25 at 08:00; Stop 03/07/25 at 08:04; Status DC Carvedilol 12.5 mg BID PO Last administered on 03/07/25at 19:42; Start 03/07/25 at 09:00; Stop 04/06/25 at 08:59 Pantoprazole Sodium 40 mg AM PO; Start 03/07/25 at 09:00; Stop 04/06/25 at 08:59 Vitamin B Complex 3,000 mcg DAILY PO; Start 03/07/25 at 09:00; Stop 04/06/25 at 08:59 Ferrous Sulfate 325 mg BID PO Last administered on 03/07/25at 19:42; Start 03/07/25 at 09:00; Stop 04/06/25 at 08:59 Atorvastatin Calcium 10 mg HS PO Last administered on 03/07/25at 19:42; Start 03/07/25 at 21:00; Stop 04/06/25 at 20:59 Tranexamic Acid 1,000 mg STK-MED ONCE .ROUTE; Start 03/07/25 at 07:55; Stop 03/07/25 at 07:56; Status DC Acetaminophen/ Hydrocodone Bitart 1 tab Q4H PRN PO Last administered on 03/07/25at 11:51; Start 03/07/25 at 08:30; Stop 03/12/25 at 08:29 Acetaminophen/ Hydrocodone Bitart 2 tab Q4H PRN PO Last administered on 03/08/25at 01:00; Start 03/07/25 at 08:30; Stop 03/12/25 at 08:29 Phenylephrine HCl 10 mg STK-MED ONCE IV; Start 03/07/25 at 08:59; Stop 03/07/25 at 08:59; Status DC Cefazolin Sodium 2 gm STK-MED ONCE IVPB Last administered on 03/07/25at 08:50; Start 03/07/25 at 08:50; Stop 03/07/25 at 09:22; Status DC Tranexamic Acid 1,000 mg STK-MED ONCE IV Last administered on 03/07/25at 08:58; Start 03/07/25 at 08:58; Stop 03/07/25 at 09:22; Status DC Rocuronium [place] 50 mg STK-MED ONCE .ROUTE; Start 03/07/25 at 09:28; Stop 03/07/25 at 09:29; Status DC Glycopyrrolate 1 mg STK-MED ONCE .ROUTE; Start 03/07/25 at 10:52; Stop 03/07/25 at 10:52; Status DC Neostigmine Methylsulfate 10 mg STK-MED ONCE IV; Start 03/07/25 at 10:52; Stop 03/07/25 at 10:52; Status DC Fentanyl Citrate 100 mcg STK-MED ONCE .ROUTE; Start 03/07/25 at 11:02; Stop 03/07/25 at 11:03; Status DC Propofol 200 mg STK-MED ONCE IV; Start 03/07/25 at 11:04; Stop 03/07/25 at 11:05; Status DC Tranexamic Acid 1,000 mg STK-MED ONCE IV Last administered on 03/07/25at 10:52; Start 03/07/25 at 10:52; Stop 03/07/25 at 11:19; Status DC Hydromorphone HCl 1 mg STK-MED ONCE .ROUTE Last administered on 03/07/25at 11:24; Start 03/07/25 at 11:19; Stop 03/07/25 at 11:20; Status DC Fentanyl Citrate 100 mcg STK-MED ONCE .ROUTE Last administered on 03/07/25at 11:44; Start 03/07/25 at 11:34; Stop 03/07/25 at 11:34; Status DC Gabapentin 100 mg STK-MED ONCE .ROUTE; Start 03/07/25 at 11:37; Stop 03/07/25 at 11:37; Status DC Acetaminophen/ Hydrocodone Bitart 1 tab STK-MED ONCE .ROUTE; Start 03/07/25 at 11:49; Stop 03/07/25 at 11:49; Status DC Methocarbamol 1,000 mg ONCE ONCE PO Last administered on 03/07/25at 11:59; Start 03/07/25 at 12:00; Stop 03/07/25 at 12:01; Status DC Cefazolin Sodium 2 gm Q8H IVP Last administered on 03/08/25at 01:00; Start 03/07/25 at 17:00; Stop 03/08/25 at 01:01; Status DC Gabapentin 100 mg Q8H PO Last administered on 03/07/25at 19:42; Start 03/07/25 at 19:00; Stop 03/08/25 at 03:10; Status DC Gabapentin 100 mg Q8H PO; Start 03/08/25 at 08:00; Stop 04/07/25 at 07:59 Ketorolac Tromethamine 15 mg STK-MED ONCE .ROUTE; Start 03/08/25 at 05:45; Stop 03/08/25 at 05:46; Status DC AMANDA BROWN NP Mar 08, 2025 07:41
[2025-03-08] MEDS: ASPIRIN 325MG EC TAB PO SCH (08:32)
[2025-03-08] MEDS: GABApentin 100 MG CAPSULE PO SCH (08:33)
--- NOTE | 2025-03-08 14:27 | NUR ---
LEG CRAMP AMANDA GASTROENTEROLOGY TEACHER INFORMED OF PATIENTS COMPLAINT OF LEFT LEG THIGH CRAMP VOICED TO CONTINUE CURRENT REGIMEN TO INCLUDE MUSCLE RELAXANT.
[2025-03-09] VITALS: BP 115/65; PULSE 82; RESP 18; TEMP 99.2
[2025-03-09 04:00] VITALS: BP 144/73; PULSE 81; RESP 16; TEMP 98.4
[2025-03-09 07:15] VITALS: BP 138/77; PULSE 89; RESP 20; TEMP 98
[2025-03-09 07:40] VITALS: O2SAT 97
[2025-03-09 11:51] VITALS: BP 157/93; PULSE 91; RESP 20; TEMP 98.1
--- NOTE | 2025-03-09 12:08 | NUR ---
CM NOTE Informed primary nurse, pt accepted with [facility], but needs to call report at time of dc.
[2025-03-09] MEDS ORDERED: DOCU-116 PO (14:05)
[2025-03-09] MEDS ORDERED: GABA100C PO (14:05)
[2025-03-09] MEDS ORDERED: HYDR-4060 PO (14:05)
[2025-03-09] MEDS ORDERED: ASPI-891 PO (14:05)
[2025-03-09] MEDS ORDERED: CYCL-309 PO (14:05)
[2025-03-10] MEDS ORDERED: BisaCODYL 10 MG SUPP.RECT RC PRN (08:00)
== END 2025-03-09 17:25 | disposition home or self-care (01) ==
LOC: DAH 05:52 → DAHIP 05:53 → DAH 05:53 → 4BH 12:30
PROVIDERS: ADMIT Student in an Organized Health Care Education/Training Program; ATTEND Student in an Organized Health Care Education/Training Program
DX: M16.12 Unilateral primary osteoarthritis, left hip (principal); M54.2 Cervicalgia; I25.2 Old myocardial infarction; I12.0 Hypertensive chronic kidney disease with stage 5 chronic kidney disease or end stage renal disease; N18.6 End stage renal disease; E75.6 Lipid storage disorder, unspecified; K21.9 Gastro-esophageal reflux disease without esophagitis; E78.5 Hyperlipidemia, unspecified; D62 Acute posthemorrhagic anemia; Z86.73 Personal history of transient ischemic attack (TIA), and cerebral infarction without residual deficits; Z98.890 Other specified postprocedural states; Z79.899 Other long term (current) drug therapy; Z90.49 Acquired absence of other specified parts of digestive tract; Z90.89 Acquired absence of other organs
CPT/HCPCS: 82040; 80048 ×2; 85025; 85610; 85730; 84134; 86140; 36415 ×2; 93005; 87641; 96376 ×2; 96365; 96366; 96375; 64447; 73503; 27130; 73521; 97161; 97116 ×6; 97530 ×8; 85027; G0378 ×50; A4223 ×2; A4663; J7120; J3010 ×3; J1171; J3490 ×7; J2250; J2704 ×2; J2405; J2710; J1885 ×3; J2371; J0690 ×4; A4649 ×2; A4930; A6255; A5120; A4215; A4213; A4222; A4221; A4216; J7030; C1776

== ENCOUNTER → 2025-11-02 | Outpatient (CLI) | payer MEDICARE ==
[~2025-11-02] MED LIST changes: -ASPI-1443 PO; +ASPI-891 PO; +CYCL-309 PO; +DOCU-116 PO; +GABA100C PO; +HYDR-4060 PO
--- NOTE | 2025-11-03 00:20 | HMCIMG ---
EXAM: CT CHEST WITHOUT CONTRAST - HRCT CLINICAL HISTORY: Shortness of breath. TECHNIQUE: Axial CT images of the chest were obtained without IV contrast administration using High Resolution CT technique (HRCT). Inspiratory and expiratory sequences were obtained. Multiplanar reconstructions. The protocol utilizes one or more of the following dose reduction techniques: automated exposure control, adjustment of mA and/or kV according to patient size, and/or use of iterative reconstruction technique. CONTRAST: NONE COMPARISON: None. FINDINGS: LUNGS AND LARGE AIRWAYS: There is bibasilar dependent atelectasis. There is a calcified granuloma in the right upper lobe. There is no evidence of interstitial thickening. No ground-glass opacities or consolidation. No evidence of air trapping in the expiratory views. PLEURA: Unremarkable. No pleural effusion or thickening. HEART AND PERICARDIUM: The heart size is normal. There is no pericardial effusion. VESSELS: The thoracic aorta is nondilated. The pulmonary trunk is also of normal size. MEDIASTINUM AND JAY: There are calcified right hilar lymph nodes. The esophagus is collapsed. There is no hiatal hernia. SOFT TISSUES: Included thyroid gland is unremarkable. There is no axillary, supraclavicular, or lower cervical adenopathy. BONES: No suspicious lytic or blastic abnormality observed. UPPER ABDOMEN: The gallbladder is surgically absent. Gastric sleeve surgery changes are noted. Bowel anastomotic suture is noted in the left upper quadrant (incompletely imaged). IMPRESSION: 1. No evidence of acute intrathoracic pathology. 2. Bibasilar dependent atelectasis. 3. Chronic and incidental findings, as detailed in the body of the report. /[facility]
== END | disposition home or self-care (01) ==
LOC: RAH 13:05
PROVIDERS: ATTEND Internal Medicine Cardiovascular Disease
DX: J98.11 Atelectasis (principal); R06.02 Shortness of breath; J98.4 Other disorders of lung; Z90.49 Acquired absence of other specified parts of digestive tract
CPT/HCPCS: 71250